=== PATIENT | female | born 1970 | race Hispanic/Latino ===

== ENCOUNTER 2023-10-23 12:47 | Emergency (ER) | payer SELFPAY ==
[~2023-10-23] VITALS: Ht 149.9 cm; Wt 62.6 kg
[2023-10-23 13:04] VITALS: PULSE 76; RESP 16; TEMP 98.8; O2SAT 96
[2023-10-23] MEDS ORDERED: CLINDAMYCIN HC150 MG PO (14:25)
[2023-10-23] MEDS ORDERED: CIPRO500 MG PO (14:25)
== END 2023-10-23 15:25 | disposition home or self-care (01) ==
LOC: ER 12:56
DX: L02.211 Cutaneous abscess of abdominal wall (principal); J45.909 Unspecified asthma, uncomplicated
CPT/HCPCS: 99282